=== PATIENT | male | born 1955 | race Caucasian/White ===

== ENCOUNTER → 2016-09-30 | Outpatient (CLI) | payer BC ==
[~2016-09-30] MED LIST: CONTRAST GIVEN MC PRN; IOHEXOL 240 MG/ML 50ML VIAL. PO ONE; IOHEXOL 300 MG/ML 75 ML VIAL IV ONE
--- NOTE | 2016-09-30 15:08 | RAD ---
Indication abdominal pain. Vomiting. Axial images through the abdomen and pelvis were obtained. Both oral and IV contrast were administered. Approximately 60 cc of Omnipaque 300 was administered intravenously. Note is made of a prior examination of the abdomen and pelvis 12/06/2013. The lung bases are clear. Some coronary artery calcification is noted. The liver and spleen appear unremarkable. The gallbladder appears grossly normal. No adrenal or renal anomalies are seen. The ureters are normal. The pancreas appears unremarkable. No acute finding is apparent in the abdomen. In the pelvis no focal mass or inflammatory process is seen. Occasional diverticula are seen associated with the large bowel. Active inflammation is not seen. The appendix is seen in the right lower quadrant and appears unremarkable. IMPRESSION: No acute finding seen in the abdomen or pelvis. PQRS Compliance Statement: One or more of the following individualized dose reduction techniques were utilized for this examination: 1. Automated exposure control 2. Adjustment of the mA and/or kV according to patient size 3. Use of iterative reconstruction technique
== END | disposition home or self-care (01) ==
LOC: CT 12:46
PROVIDERS: ATTEND Internal Medicine
DX: R10.9 Unspecified abdominal pain (principal); R11.10 Vomiting, unspecified
CPT/HCPCS: 74177; Q9966; Q9967

== ENCOUNTER → 2021-07-07 | Outpatient (CLI) | payer MEDICARE ==
[~2021-07-07] MED LIST changes: -CONTRAST GIVEN MC PRN; +IOHEXOL 300 MG/ML 100ML VIAL. IV ONE; -IOHEXOL 300 MG/ML 75 ML VIAL IV ONE
[2021-07-07 16:07] LABS: CREATININE 1.2 mg/dL (0.7-1.3); GFR 60.2
--- NOTE | 2021-07-08 08:29 | RAD ---
CT of the abdomen and pelvis with contrast 07/08/2021 8:21 AM Indication: Abdominal pain. Comparison study: CT of the abdomen and pelvis September 30, 2016 Technique: Multidetector CT imaging of the abdomen and pelvis was performed following the administrat ion of IV contrast. Findings: The partially visualized lung bases demonstrate no acute abnormality. Multivessel dense coronary calc ification noted. The liver, gallbladder, spleen, bilateral adrenal glands, bilateral kidneys, and pancreas, are grossl y unremarkable. There is no bowel obstruction. There is a focal area of inflammation abutting the anterior aspect of the sigmoid colon (axial image 67). Other scattered colonic diverticula noted. The appearance likely reflects diverticulitis. No mario e air or definitive perforation is identified. No abscess is seen. Atypical epiploic appendicitis is a secondary consideration. Bladder is grossly unremarkable. No free fluid or free air is seen in the abdomen or pelvis. No acu te osseous changes are identified. Impression: 1. Focal area of inflammatory change involving the sigmoid colon most likely acute diverticulitis, as described. 2. No other acute intra-abdominal abnormality. CT DOSING PQRS STATEMENT: One or more of the following individualized dose reduction techniques were utilized for this examinat ion: 1. Automated exposure control 2. Adjustment of the mA and/or kV according to patient size 3. Use of iterative reconstruction technique Electronically signed by: Isidro Martinez MD (07/08/2021 8:27 AM) [id number]
== END ==
LOC: CT 14:56
PROVIDERS: ATTEND Internal Medicine
DX: I25.10 Atherosclerotic heart disease of native coronary artery without angina pectoris (principal); K57.30 Diverticulosis of large intestine without perforation or abscess without bleeding
CPT/HCPCS: 36415; 74177; 82565; Q9966; Q9967